=== PATIENT | male | born 1945 | race Caucasian/White ===

== ENCOUNTER 2018-03-04 18:00 | Emergency (ER) | payer MEDICARE ==
[2018-03-04] MEDS ORDERED: Ibuprofen 600 MG TAB ONE (18:33)
--- NOTE | 2018-03-04 20:47 | RAD ---
FOUR VIEWS OF THE RIGHT KNEE: 03/04/18 INDICATION: Right knee pain after fall. COMPARISON: None. FINDINGS: There is a right total knee prosthesis that projects in the expected position. No acute fracture or s ubluxation is evident. There are severe vascular calcifications within the posterior soft tissues. Th ere are surgical clips within the posteromedial soft tissues of the right knee and distal right femur and proximal right foreleg most consistent with saphenous vein harvesting. IMPRESSION: No acute osseous abnormality demonstrated. POS: [facility]
--- NOTE | 2018-03-04 20:49 | CT ---
CT OF THE BRAIN WITHOUT CONTRAST: 03/04/18 INDICATION: Fall with headache. COMPARISON: None. FINDINGS: There is generalized cerebral and cerebellar atrophy. There are moderate chronic small vessel white matter ischemic changes. No acute infarct, hemorrhage, or hydrocephalus is present. No midline shift is present. Skull and extracranial soft tissues are unremarkable. IMPRESSION: No acute intracranial abnormality. POS: [facility]
--- NOTE | 2018-03-04 20:50 | RAD ---
THREE VIEWS RIGHT HAND: 03/04/18 INDICATION: Right hand pain after fall. FINDINGS: There is diffuse osteopenia. There are vascular calcifications within the soft tissues. 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 There is healed deformity involving the small finger metacarpal. No ac bean fracture or subluxation is evident. IMPRESSION: No acute osseous abnormality. POS: [facility]
--- NOTE | 2018-03-04 20:51 | RAD ---
FOUR VIEWS OF THE LEFT KNEE: 03/04/18 INDICATION: Left knee pain after fall. COMPARISON: None. FINDINGS: No acute fracture or subluxation is evident. There are vascular calcifications within the posterior s oft tissues. There is mild osteoarthritic change of the left knee joint. IMPRESSION: No acute osseous abnormality. POS: [facility]
--- NOTE | 2018-03-04 21:04 | CT ---
CT CERVICAL SPINE WITHOUT CONTRAST: 03/04/18 HISTORY: Midline pain, after fall. The visualized soft tissue neck structures are unremarkable. There is atherosclerosis of both carotid arteries. Medial deviation of the left carotid artery causes some mass effect upon the supraglottic larynx. There are varying degrees of central canal stenosis and foraminal narrowing on the basis of d egenerative changes. Moderate central canal stenosis at C5-C6. Evaluation is limited by technique. Upper mediastinum and lung apices are unremarkable. No craniocervical dissociation. Odontoid process is intact. Lateral masses of C1 and C2 as well as th e facets articulate appropriately. Cervical spine vertebral body height is maintained. No fracture. There is straightening of the normal cervical lordosis with slight flexion at C2 and C3 with resultant slight widening of the interspinou s ligament at C2-C3. The findings may be due to patient position, muscle spasm or cervical collar. IMPRESSION: 1. No cervical spine fracture. 2. Alignment is presumed to be due to patient position, muscle spasm or cervical collar. Current study does not allow for assessment for ligamentous injury. POS: [facility]
== END 2018-03-04 19:44 | disposition home or self-care (01) ==
LOC: MADERS 18:00
DX: S13.4XXA Sprain of ligaments of cervical spine, initial encounter (principal); S63.91XA Sprain of unspecified part of right wrist and hand, initial encounter; S80.01XA Contusion of right knee, initial encounter; I10 Essential (primary) hypertension; K21.9 Gastro-esophageal reflux disease without esophagitis; W06.XXXA Fall from bed, initial encounter
CPT/HCPCS: 70450; 72125

== ENCOUNTER 2018-03-29 12:10 | Emergency (ER) | payer MEDICARE ==
[2018-03-29 13:09] LABS: #Basophils 0.1 thou/uL (0.0-0.2); #Eosinphils 0.1 thou/uL (0.0-0.7); #Lymphocytes 1.7 thou/uL (1.20-3.40); #Monocytes 0.8 thou/uL (0.11-0.59); #Neutrophils 8.1 thou/uL (1.40-6.50); %Basophils 0.6 % (0.0-1.0); %Eosinophils 0.8 % (0.0-10.0); %Lymphocytes 15.6 % (21.0-51.0); %Monocytes 7.8 % (0.0-10.0); %Neutrophils 75.2 % (42.0-75.0); Hemoglobin 17.8 g/dL (14.0-18.0); Mean Corpuscular Hemoglobin 28.5 pg (27.0-31.0); Mean Corpuscular Volume 86.3 fL (78.0-98.0); Mean Platelet Volume 8.5 fL (7.4-10.4); Platelet Count 200 thou/uL (130-400); RBC Distribution Width 12.4 % (11.5-14.5); Red Blood Cell (RBC) Count 6.24 mill/uL (4.70-6.10); White Blood Cell (WBC) Count 10.7 thou/uL (4.8-10.8)
[2018-03-29 13:22] LABS: Bilirubin Negative (Negative); Blood, Urine Small (Negative); Clarity Clear (Clear); Glucose, Urine (Dipstick) Negative (Negative); Leukocyte Small (Negative); Nitrite Negative (Negative); Protein, Urine (Dipstick) Negative (Neg-Trace); Specific Gravity, Urine 1.015 (1.005-1.030); Urobilinogen 0.2 mg/dL (0.2-1.0); pH, Urine 8.5 (5.0-9.0)
[2018-03-29 13:23] LABS: ALT (SGPT) 12 U/L (8-55); AST (SGOT) 16 U/L (5-34); Albumin 3.9 g/dL (3.4-4.8); Alkaline Phosphatase 141 U/L (40-150); Anion Gap 18 mmol/L (10-20); BUN (Urea Nitrogen) 12 mg/dL (8.4-25.7); Bilirubin, Total 0.9 mg/dL (0.2-1.2); Calc. Creatinine Clearance 0 mL/min (70-130); Carbon Dioxide 25 mmol/L (23-31); Chloride 101 mmol/L (98-107); Estimated GFR-MDRD 53; Globulin 4.2 g/dL (2.4-3.5); Glucose 103 mg/dL (80-115); Potassium 4.7 mmol/L (3.5-5.1); Protein, Total 8.1 g/dL (5.8-8.1); Sodium 139 mmol/L (136-145)
[2018-03-29 13:31] LABS: Squamous Epithelial 0-3 HPF (0-3)
[2018-03-29 13:32] LABS: Bacteria/HPF Rare-Few HPF (None Seen)
--- NOTE | 2018-03-29 13:47 | RAD ---
RIGHT KNEE THREE VIEWS: History: 72-year-old male with history of right knee pain without trauma. FINDINGS: Status post total knee arthroplasty changes. Numerous surgical clips along the inner aspect of the lo wer leg. No dislocation. Prominent arterial vascular calcifications. IMPRESSION: Post op total knee replacement. No dislocation or periprosthetic fracture or other acute process. POS: [facility]
[2018-03-29] MEDS ORDERED: cefTRIAXone\\ROCEPHIN 1 GM VIAL ONE (14:28)
== END 2018-03-29 14:45 | disposition home or self-care (01) ==
LOC: MADERS 12:10
DX: N39.0 Urinary tract infection, site not specified (principal); R53.1 Weakness; K21.9 Gastro-esophageal reflux disease without esophagitis; I10 Essential (primary) hypertension; Z79.899 Other long term (current) drug therapy; Z79.82 Long term (current) use of aspirin
CPT/HCPCS: 36415; 80053; 81001; 85025; 93005; 96374; J0696

== ENCOUNTER 2018-06-01 12:22 | Emergency (ER) | payer MEDICARE ==
[2018-06-01 13:07] LABS: #Basophils 0.1 thou/uL (0.0-0.2); #Eosinphils 0.2 thou/uL (0.0-0.7); #Lymphocytes 1.7 thou/uL (1.20-3.40); #Monocytes 0.9 thou/uL (0.11-0.59); %Basophils 0.8 % (0.0-1.0); %Eosinophils 1.6 % (0.0-10.0); %Lymphocytes 17.3 % (21.0-51.0); %Monocytes 9.3 % (0.0-10.0); Hemoglobin 15.7 g/dL (14.0-18.0); Mean Corpuscular HGB CONC 33.5 g/dL (32.0-36.0); Mean Corpuscular Volume 86.6 fL (78.0-98.0); Mean Platelet Volume 7.9 fL (7.4-10.4); Platelet Count 192 thou/uL (130-400); RBC Distribution Width 12.5 % (11.5-14.5); Red Blood Cell (RBC) Count 5.41 mill/uL (4.70-6.10); White Blood Cell (WBC) Count 9.9 thou/uL (4.8-10.8)
[2018-06-01 13:20] LABS: ALT (SGPT) 14 U/L (8-55); AST (SGOT) 20 U/L (5-34); Albumin 3.8 g/dL (3.4-4.8); Alkaline Phosphatase 121 U/L (40-150); Anion Gap 15 mmol/L (10-20); BUN (Urea Nitrogen) 20 mg/dL (8.4-25.7); Bilirubin, Total 0.9 mg/dL (0.2-1.2); Calc. Creatinine Clearance 0 mL/min (70-130); Calcium 9.4 mg/dL (7.8-10.44); Carbon Dioxide 21 mmol/L (23-31); Chloride 103 mmol/L (98-107); Estimated GFR-MDRD 56; Globulin 3.8 g/dL (2.4-3.5); Glucose 107 mg/dL (80-115); Potassium 3.9 mmol/L (3.5-5.1); Protein, Total 7.6 g/dL (5.8-8.1); Sodium 135 mmol/L (136-145)
[2018-06-01 13:38] LABS: Bacteria/HPF Rare-Few HPF (None Seen); Bilirubin Negative (Negative); Blood, Urine Small (Negative); Clarity Hazy (Clear); Glucose, Urine (Dipstick) Negative (Negative); Leukocyte Moderate (Negative); Nitrite Negative (Negative); Protein, Urine (Dipstick) Negative (Neg-Trace); RBC/HPF 0-3 HPF (0-3); Squamous Epithelial 0-3 HPF (0-3); Urobilinogen 0.2 mg/dL (0.2-1.0); pH, Urine 5.5 (5.0-9.0)
--- NOTE | 2018-06-01 13:50 | RAD ---
FRONTAL VIEW CHEST: COMPARISON: 05/29/2018. INDICATION: Altered mental status. FINDINGS: There is no lobar consolidation, effusion, or pneumothorax. Evidence of prior sternotomy. Cardiac s ilhouette is prominent. There is osseous degenerative change. IMPRESSION: No focal consolidation evident by frontal view chest. Exam is stable to 05/29/2018 exam. POS: [facility]
[2018-06-01] MEDS ORDERED: Haloperidol Lactate 5 MG/ML VIAL ONE (14:42)
[2018-06-01] MEDS ORDERED: Lorazepam 2 MG/ML VIAL ONE (15:45)
== END 2018-06-01 16:47 | disposition short-term general hospital (02) ==
LOC: MADERS 12:22
DX: N39.0 Urinary tract infection, site not specified (principal); R41.82 Altered mental status, unspecified; D64.9 Anemia, unspecified; I48.91 Unspecified atrial fibrillation; F32.9 Major depressive disorder, single episode, unspecified; K21.9 Gastro-esophageal reflux disease without esophagitis; M10.9 Gout, unspecified; E78.00 Pure hypercholesterolemia, unspecified; I10 Essential (primary) hypertension
CPT/HCPCS: 36415; 71045; 80053; 81003; 81015; 84443; 85025; 93005; 96372; J1630; J2060

== ENCOUNTER 2019-06-13 23:12 | Emergency (ER) | payer MEDICARE ==
[2019-06-13 23:55] LABS: Bilirubin Negative (Negative); Blood, Urine Moderate (Negative); Clarity Cloudy (Clear); Glucose, Urine (Dipstick) Negative (Negative); Leukocyte Large (Negative); Nitrite Negative (Negative); Protein, Urine (Dipstick) Negative (Neg-Trace); Urobilinogen 0.2 mg/dL (Less than 2)
[2019-06-13 23:59] LABS: Bacteria/HPF 2+ HPF (None Seen); WBC/HPF 21-50 HPF (0-3)
== END 2019-06-14 00:45 | disposition home or self-care (01) ==
LOC: MADERS 23:12
DX: N30.00 Acute cystitis without hematuria (principal); D64.9 Anemia, unspecified; I48.91 Unspecified atrial fibrillation; F32.9 Major depressive disorder, single episode, unspecified; K21.9 Gastro-esophageal reflux disease without esophagitis; M10.9 Gout, unspecified; E78.00 Pure hypercholesterolemia, unspecified; I10 Essential (primary) hypertension; M19.90 Unspecified osteoarthritis, unspecified site; Z79.899 Other long term (current) drug therapy; Z79.02 Long term (current) use of antithrombotics/antiplatelets
CPT/HCPCS: 81003; 81015; 87086; 99283